=== PATIENT | male | born 1970 | race African-American/Black ===

== ENCOUNTER 2017-10-08 14:08 | Inpatient (IN) ==
[2017-10-08] MEDS ORDERED: ACETAMINOPHEN 325 MG TABLET PO PRN (17:49)
[2017-10-08] MEDS ORDERED: ONDANSETRON 4 MG/2 ML VIAL IV PRN (17:49)
[2017-10-08] MEDS ORDERED: HEPARIN DRIP 25,000 UNITS/500 ML PREMIX IV SCH (18:30)
[2017-10-08 19:11] LABS: Basophils % 0.4 % (0.0-0.8); Eosinophils % 0.4 % (0.00-10.9); Hematocrit 41.3 VOL% (42.0-52.0); Immature Granulocytes % 2.9 %; Immature Granulocytes Absolute 0.13 #; Lymphocytes # 1.8 10*3/uL (1.4-4.0); Lymphocytes % 39.8 % (21.2-54.2); Mean Corpuscular HGB Conc 31.5 GM/DL (32-36); Mean Corpuscular Hemoglobin 28 PG (27-34); Mean Corpuscular Volume 89.6 FL (87-102); Mean Platelet Volume 11.9 FL (9.6-12.0); Monocytes # 0.4 10*3/uL (0.11-0.8); Monocytes % 9.5 % (1.7-12.7); NRBC # 0.12 10*3/uL; Neutrophils # 2.1 10*3/uL (1.4-7.4); Platelet Count 189 T/CUMM (130-400); Red Blood Count 4.61 MC/CUMM (3.8-5.5); Red Cell Distribution Width 22.7 % (9.3-17.3); White Blood Count 4.5 T/CUMM (4-12)
[2017-10-08 19:22] LABS: INR 1.7; PT Patient Result 17.4 SECS; Partial Thromboplastin Time 35.9 SECS (0-40)
[2017-10-08 19:47] LABS: Albumin 2.6 G/DL (3.4-5.0); Bilirubin,Total 1.2 MG/DL (0.2-1.0); Calcium 8.6 MG/DL (8.5-10.1); Osmolality,Calculated 282.5 MOS/KG (273-304); Potassium 4.3 MMOL/L (3.5-5.1); Thyroid Stimulating Hormone 2.83 uIU/ml (0.358-3.74); Total Protein 8.5 G/DL (6.4-8.3)
[2017-10-08] MEDS ORDERED: SODIUM CHLORIDE 0.9% 1,000 ML IV SCH (20:30)
[2017-10-08 20:47] LABS: Band Neutrophils 2 % (0-10); Lymphocytes 34 % (20-55); Nucleated Red Blood Cells 2 (0-5); Platelet Estimate Normal; Segmented Neutrophils 56 % (50-85); Total Cells Counted 100
[2017-10-08 20:48] LABS: Macrocytosis Slight; Polychromasia Slight
[2017-10-08] MEDS ORDERED: IBUPROFEN 400 MG TABLET PO PRN (22:23)
[2017-10-09 00:59] LABS: Basophils % 0.8 % (0.0-0.8); Eosinophils % 0.6 % (0.00-10.9); Hematocrit 39.9 VOL% (42.0-52.0); Hemoglobin 13.1 GM/DL (14.0-18.0); Immature Granulocytes % 1.9 %; Immature Granulocytes Absolute 0.07 #; Lymphocytes # 1.6 10*3/uL (1.4-4.0); Lymphocytes % 45.4 % (21.2-54.2); Mean Corpuscular HGB Conc 32.8 GM/DL (32-36); Mean Corpuscular Hemoglobin 28 PG (27-34); Mean Corpuscular Volume 86.6 FL (87-102); Mean Platelet Volume 10.2 FL (9.6-12.0); Monocytes # 0.3 10*3/uL (0.11-0.8); Monocytes % 8.4 % (1.7-12.7); NRBC # 0.13 10*3/uL; Neutrophils # 1.5 10*3/uL (1.4-7.4); Neutrophils % 42.9 % (38.7-73.9); Platelet Count 145 T/CUMM (130-400); Red Blood Count 4.61 MC/CUMM (3.8-5.5); Red Cell Distribution Width 23.3 % (9.3-17.3); White Blood Count 3.6 T/CUMM (4-12)
[2017-10-09 01:12] LABS: INR 1.8; PT Patient Result 18.4 SECS
[2017-10-09 01:15] LABS: Partial Thromboplastin Time 71.8 SECS (0-40)
[2017-10-09 01:20] LABS: Albumin 2.6 G/DL (3.4-5.0); Bilirubin,Total 1.3 MG/DL (0.2-1.0); Calcium 7.7 MG/DL (8.5-10.1); Osmolality,Calculated 288.3 MOS/KG (273-304); Potassium 3.9 MMOL/L (3.5-5.1); Total Protein 7.7 G/DL (6.4-8.3)
[2017-10-09 07:58] LABS: INR 1.7; PT Patient Result 17.2 SECS
[2017-10-09 08:17] LABS: Partial Thromboplastin Time 81.4 SECS (0-40)
[2017-10-09] MEDS ORDERED: SODIUM BICARB INJ 100 MEQ in DEXTROSE 5% 1,000 ML IV SCH (10:30)
[2017-10-09] MEDS: PANTOPRAZOLE 40 MG TABLET PO SCH (10:50)
[2017-10-09] MEDS: [UNRECOGNIZED DRUG - OTHER] PO SCH (10:50)
[2017-10-09] MEDS: ACETYLCYSTEINE 600 MG CAPSULE PO SCH ×2 (10:50→21:10)
[2017-10-09] MEDS: LEVOFLOXACIN 750 MG TABLET PO SCH (10:50)
[2017-10-09] MEDS: APIXABAN 5 MG TABLET PO SCH ×2 (10:50→21:10)
[2017-10-09] MEDS: FUROSEMIDE 20 MG/2 ML VIAL IV SCH (16:24)
[2017-10-10 03:23] LABS: Basophils % 0.3 % (0.0-0.8); Eosinophils % 0.6 % (0.00-10.9); Hematocrit 40.7 VOL% (42.0-52.0); Hemoglobin 13.3 GM/DL (14.0-18.0); Immature Granulocytes % 2.7 %; Immature Granulocytes Absolute 0.09 #; Lymphocytes # 1.2 10*3/uL (1.4-4.0); Lymphocytes % 36.3 % (21.2-54.2); Mean Corpuscular HGB Conc 32.7 GM/DL (32-36); Mean Corpuscular Hemoglobin 28 PG (27-34); Mean Platelet Volume 10.7 FL (9.6-12.0); Monocytes # 0.4 10*3/uL (0.11-0.8); Monocytes % 10.6 % (1.7-12.7); NRBC # 0.04 10*3/uL; Neutrophils # 1.7 10*3/uL (1.4-7.4); Neutrophils % 49.5 % (38.7-73.9); Platelet Count 163 T/CUMM (130-400); Red Blood Count 4.68 MC/CUMM (3.8-5.5); Red Cell Distribution Width 23.9 % (9.3-17.3); White Blood Count 3.4 T/CUMM (4-12)
[2017-10-10 03:52] LABS: Albumin 2.4 G/DL (3.4-5.0); Bilirubin,Total 1.4 MG/DL (0.2-1.0); Osmolality,Calculated 286.3 MOS/KG (273-304); Potassium 3.9 MMOL/L (3.5-5.1)
[2017-10-10 04:27] LABS: Eosinophils 1 % (0-10); Lymphocytes 22 % (20-55); Nucleated Red Blood Cells 1 (0-5); Platelet Estimate Normal; Segmented Neutrophils 68 % (50-85); Total Cells Counted 100
[2017-10-10] MEDS: APIXABAN 5 MG TABLET PO SCH ×2 (11:12→23:00)
[2017-10-10] MEDS: PANTOPRAZOLE 40 MG TABLET PO SCH (11:12)
[2017-10-10] MEDS: [UNRECOGNIZED DRUG - OTHER] PO SCH (11:12)
[2017-10-10] MEDS: FUROSEMIDE 20 MG/2 ML VIAL IV SCH (11:12)
[2017-10-10] MEDS: ACETYLCYSTEINE 600 MG CAPSULE PO SCH ×2 (11:12→23:00)
[2017-10-10] MEDS: LEVOFLOXACIN 750 MG TABLET PO SCH (11:12)
[2017-10-10] MEDS: ACYCLOVIR INJ 500 MG in SODIUM CHLORIDE 0.9% 100 ML IV SCH (19:35)
[2017-10-11] MEDS: ACYCLOVIR INJ 500 MG in SODIUM CHLORIDE 0.9% 100 ML IV SCH ×3 (02:45→18:07)
[2017-10-11 05:23] LABS: Albumin 2.3 G/DL (3.4-5.0); Bilirubin,Total 1.4 MG/DL (0.2-1.0); Calcium 7.6 MG/DL (8.5-10.1); Osmolality,Calculated 277.7 MOS/KG (273-304); Potassium 3.8 MMOL/L (3.5-5.1); Total Protein 7.6 G/DL (6.4-8.3)
[2017-10-11] MEDS: ACETYLCYSTEINE 600 MG CAPSULE PO SCH ×2 (08:21→20:44)
[2017-10-11] MEDS: [UNRECOGNIZED DRUG - OTHER] PO SCH (08:21)
[2017-10-11] MEDS: APIXABAN 5 MG TABLET PO SCH ×2 (08:22→20:44)
[2017-10-11] MEDS: FUROSEMIDE 20 MG/2 ML VIAL IV SCH (08:22)
[2017-10-11] MEDS: PANTOPRAZOLE 40 MG TABLET PO SCH (08:22)
[2017-10-11] MEDS: LEVOFLOXACIN 750 MG TABLET PO SCH (08:22)
[2017-10-11] MEDS: SPIRONOLACTONE 25 MG TABLET PO SCH (14:30)
[2017-10-12] MEDS: ACYCLOVIR INJ 500 MG in SODIUM CHLORIDE 0.9% 100 ML IV SCH ×3 (02:03→17:42)
[2017-10-12 05:49] LABS: Albumin 2.4 G/DL (3.4-5.0); Bilirubin,Total 1.1 MG/DL (0.2-1.0); Calcium 8.2 MG/DL (8.5-10.1); Osmolality,Calculated 278.5 MOS/KG (273-304); Potassium 3.8 MMOL/L (3.5-5.1); Total Protein 7.9 G/DL (6.4-8.3)
[2017-10-12] MEDS: FUROSEMIDE 20 MG/2 ML VIAL IV SCH (09:54)
[2017-10-12] MEDS: PANTOPRAZOLE 40 MG TABLET PO SCH (09:54)
[2017-10-12] MEDS: ACETYLCYSTEINE 600 MG CAPSULE PO SCH ×2 (09:54→20:15)
[2017-10-12] MEDS: SPIRONOLACTONE 25 MG TABLET PO SCH (09:54)
[2017-10-12] MEDS: [UNRECOGNIZED DRUG - OTHER] PO SCH (11:53)
[2017-10-12] MEDS: APIXABAN 5 MG TABLET PO SCH ×2 (11:53→20:15)
[2017-10-13] MEDS: ACYCLOVIR INJ 500 MG in SODIUM CHLORIDE 0.9% 100 ML IV SCH ×2 (02:08→10:56)
[2017-10-13] MEDS: SPIRONOLACTONE 25 MG TABLET PO SCH (10:41)
[2017-10-13] MEDS: ACETYLCYSTEINE 600 MG CAPSULE PO SCH (10:41)
[2017-10-13] MEDS: [UNRECOGNIZED DRUG - OTHER] PO SCH (10:42)
[2017-10-13] MEDS: APIXABAN 5 MG TABLET PO SCH (10:42)
[2017-10-13] MEDS: PANTOPRAZOLE 40 MG TABLET PO SCH (10:43)
[2017-10-13] MEDS: FUROSEMIDE 20 MG/2 ML VIAL IV SCH (10:44)
[2017-10-13 12:00] VITALS: BP 127/79
[2017-10-13] MEDS ORDERED: valACYclovir 500 MG TABLET PO SCH (21:00)
== END 2017-10-13 13:51 | disposition home or self-care (01) | DRG 292 ==
LOC: SUATTDRO 16:13 → N.CVR 16:13 → N.2E 10-11 16:02
PROVIDERS: ADMIT Internal Medicine; ATTEND Hospitalist